=== PATIENT | female | born 1990 | race Caucasian/White ===

== ENCOUNTER 2017-02-26 07:15 | Emergency (ER) | payer BC ==
[~2017-02-26] VITALS: Ht 157.5 cm; Wt 86.0 kg
[2017-02-26 07:18] VITALS: Ht 157.5 cm; Wt 86.0 kg
[2017-02-26] MEDS ORDERED: IBUPROFEN 800 MG TAB PO ONE (08:00)
[2017-02-26] MEDS ORDERED: NAPR-260 PO (08:12)
[2017-02-26] MEDS ORDERED: CEPH-443 PO (08:13)
[2017-02-26] MEDS ORDERED: SULF1TAB31 PO (08:13)
--- NOTE | 2017-02-26 08:22 | ERD ---
ER Documentation Chief Complaint Date/Time DATE: 02/26/17 TIME: 08:18 Chief Complaint FINGER PAIN AND SWELLING X 1 WEEK , NO TRAUMA HPI This is a 26-year-old female presents the emergency department today complaining of right index finger pain that resolved and now has left index finger pain. States she also has left thumb pain. States this is been for approximately 1 week. States she is taking Tylenol but has a lot of pain. 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 States she does have a primary care physician. Denies any fevers or chills. ROS All systems reviewed and are negative except as per history of present illness. Medications Home Meds Active Scripts Sulfamethoxazole/Trimethoprim* (Bactrim Ds* Tablet) 1 Each Tablet, 1 TAB PO BID for 7 Days, #14 TAB Prov:TRI OKEEFE PA-C 02/26/17 Cephalexin* (Keflex*) 500 Mg Capsule, 500 MG PO QID for 7 Days, CAP Prov:TRI OKEEFE PA-C 02/26/17 Naproxen* (Naprosyn*) 500 Mg Tablet, 500 MG PO BID Y for PAIN AND/OR INFLAMMATION, #30 TAB Prov:TRI OKEEFE PA-C 02/26/17 Allergies Allergies: Coded Allergies: No Known Allergy (Unverified , 02/26/17) PMhx/Soc History of Surgery: Yes (L. Arm, R. Knee) Anesthesia Reaction: No Hx Neurological Disorder: No Hx Respiratory Disorders: No Hx Cardiac Disorders: No Hx Psychiatric Problems: No Hx Miscellaneous Medical Probl: No Hx Alcohol Use: Yes (social) Hx Substance Use: No Hx Tobacco Use: No Smoking Status: Never smoker Physical Exam Vitals Vital Signs Date Time Temp Pulse Resp B/P Pulse Ox O2 Delivery O2 Flow Rate FiO2 02/26/17 07:18 98.1 73 18 133/94 99 Physical Exam Const: No acute distress Head: Atraumatic Eyes: Normal Conjunctiva ENT: Normal External Ears, Nose and Mouth. Neck: Full range of motion..~ No meningismus. Resp: Clear to auscultation bilaterally Cardio: Regular rate and rhythm, no murmurs Abd: Soft, non tender, non distended. Normal bowel sounds Skin: No petechiae or rashes Back: No midline or flank tenderness Ext: Right index finger with full active range of motion. No erythema, no warmth. No swelling. Full active range of motion. Left index finger with tenderness palpation at DIP and evidence of localized erythema swelling around nailbed. Left thumb with pain at DIP joint. Neur: Awake and alert Psych: Normal Mood and Affect Results 24 hrs Current Medications Medications (Trade) Dose Ordered Sig/Wilma Route PRN Reason Start Time Stop Time Status Last Admin Dose Admin Ibuprofen (Motrin) 800 mg ONCE ONCE PO 02/26/17 08:00 02/26/17 08:01 DC 02/26/17 07:50 Procedures/MDM This 26-year-old female who presents to the emergency department today complaining of bilateral index finger pain for the past week and left thumb pain. On physical exam patient's right index finger is benign. Her left index finger has evidence of a paronychia. Patient's fingernails were very short and on further questioning patient did admit to biting her nails. She also admitted to recently having her fake nails taken off. She is afebrile and otherwise well-appearing. Her symptoms at this time is consistent with paronychia secondary to biting her fingernails. Do not feel the patient requires incision and drainage at this time. Low suspicion for sepsis or deep space infection. Low suspicion for follow-up on her herpetic rhys at this time. patient was instructed to do warm water soaks. I have given her a prescription for Bactrim and Keflex. I have instructed to return for any worsening of pain or swelling. Patient was instructed to stop biting her nails. Patient was also given Naprosyn for her joint pain in her thumb. Do not feel that she requires x-rays. Low suspicion for acute fracture dislocation. Patient was given Motrin here in the emergency department. At this time the patient is stable for discharge and outpatient management. Patient should follow up with their PCP in the next 1-2 days. They may return to the emergency department sooner for any persistent or worsening of symptoms. Patient understood and agreed with the plan. Departure Diagnosis: Primary Impression: Pain of finger Laterality: bilateral Qualified Code: M79.645 - Pain in finger of both hands Condition: Fair Patient Instructions: Paronychia Referrals: your PCP Additional Instructions: Call your primary care doctor TOMORROW for an appointment during the next 1-2 days.See the doctor sooner or return here if your condition worsens before your appointment time. Do warm water soaks Take antibiotics as prescribed Take Naprosyn for pain TRI OKEEFE PA-C Feb 26, 2017 08:22
== END 2017-02-26 08:32 | disposition home or self-care (01) ==
LOC: FTE 07:15
DX: M79.645 Pain in left finger(s) (principal); M79.644 Pain in right finger(s)
CPT/HCPCS: 99284